=== PATIENT | male | born 1975 | race Caucasian/White ===

== ENCOUNTER 2020-03-08 21:39 | Inpatient (IN) | payer MEDICAID ==
[~2020-03-08] VITALS: Ht 170.2 cm; Wt 70.8 kg
--- NOTE | 2020-03-08 22:10 | NUR ---
Dr. Bernabe at bedside for MSE.
[2020-03-08] MEDS ORDERED: IV NS 1000 ML 1,000 ML IV ONE ×2 (22:15→23:15)
--- NOTE | 2020-03-08 22:30 | NUR ---
Pt provided urine sample, sent to lab.
[2020-03-08 22:36] LABS: BASOPHILS # (AUTO) 0.1 K/uL (0.0-8.0); BASOPHILS % (AUTO) 0.7 % (0.0-2.0); EOSINOPHILS % (AUTO) 0.4 % (0.0-7.0); HEMOGLOBIN 16.3 g/dL (12.5-16.3); LYMPHOCYTES % (AUTO) 24.4 % (20.5-51.5); MEAN CORPUSCULAR HEMOGLOBIN 28.2 uug (23.8-33.4); MEAN CORPUSCULAR HGB CONC 34 g/dL (32.5-36.3); MEAN CORPUSCULAR VOLUME 82.7 fL (73.0-96.2); MONOCYTES # (AUTO) 0.6 K/uL (2.0-10.0); NEUTROPHILS # (AUTO) 5.5 K/uL (1.8-8.9); NEUTROPHILS % (AUTO) 67.5 % (38.5-71.5); PLATELET COUNT (AUTO) 206 K/uL (152-348); WHITE BLOOD COUNT (AUTO) 8.1 K/uL (3.6-10.2)
[2020-03-08 22:41] LABS: *BILIRUBIN,URIN NEGATIVE (NEGATIVE); *CLARITY,URINE CLEAR (CLEAR); *COLOR,URINE LIGHT YELLOW (YELLOW); *KETONES,URINE 2+ (NEGATIVE); *UROBILINOGEN,URINE 0.2 E.U./dl (NORMAL); LEUKOCYTE ESTERASE ,URINE NEGATIVE (NEGATIVE); NITRITE, URINE NEGATIVE (NEGATIVE); UGLUCOSE 2+ (NEGATIVE)
[2020-03-08 22:42] LABS: *BLOOD, URINE TRACE INTACT (NEGATIVE)
[2020-03-08 22:46] LABS: BILIRUBIN,DIRECT 0.1 mg/dL (0.0-0.2); BILIRUBIN,TOTAL 0.7 mg/dL (0.2-1.0); CREATININE 1.6 mg/dL (0.6-1.3); POTASSIUM 4.8 mmol/L (3.5-5.1); TOTAL PROTEIN, SERUM 7.9 g/dL (6.4-8.2)
--- NOTE | 2020-03-08 23:07 | NUR ---
Called [facility] to page Dr. Silverio.
--- NOTE | 2020-03-08 23:11 | NUR ---
Dr. Bernabe on panel call with Dr. Mayur Silverio. Patient accepted for admission to CCU, diagnosis: DKA.
--- NOTE | 2020-03-08 23:11 | NUR ---
Dr. Bernabe on panel call with Dr. Mayur Silverio.
--- NOTE | 2020-03-08 23:13 | NUR ---
Report given to [facility].
[2020-03-08] MEDS ORDERED: INSULIN REGULAR, HUMAN 100 UNITS in IV NORMAL SALINE 100 ML IV ONE ×2 (23:15)
[2020-03-08] MEDS ORDERED: INSULIN REGULAR, HUMAN 300 UNIT/3 ML VIAL ONE (23:20)
[2020-03-08 23:33] LABS: BACTERIA,URINE NONE SEEN /HPF (NONE SEEN); WBC,URINE 0-3 /HPF (0-3)
[2020-03-09] VITALS (13 sets, daily range): BP systolic 110–135; BP diastolic 70–88
[2020-03-09] MEDS ORDERED: Z GUARD REMEDY PASTE 57 GM TUBE TOP PRN (00:15)
[2020-03-09] MEDS ORDERED: HYDROCODONE/APAP 5-325MG TABLET PO PRN (00:15)
[2020-03-09] MEDS ORDERED: ONDANSETRON 4 MG/2 ML VIAL IV PRN (00:15)
[2020-03-09] MEDS ORDERED: ACETAMINOPHEN 325 MG TABLET PO PRN (00:15)
[2020-03-09] MEDS ORDERED: INSULIN REGULAR, HUMAN 100 UNIT in IV NORMAL SALINE 99 ML IV PRN ×2 (00:15)
[2020-03-09] MEDS ORDERED: MAGNESIUM HYDROXIDE 30 ML LIQUID UDC PO PRN (00:15)
--- NOTE | 2020-03-09 00:25 | NUR ---
Xray at bedside.
--- NOTE | 2020-03-09 02:00 | NUR ---
received patient from ER , ambulatory , awake , oriented , x3 able to follow command on ra , denies pain , iv 20 ga on kristie , insulin drip at 9.999
--- NOTE | 2020-03-09 02:45 | NUR ---
dr jose d rodriguez was called to clarify algorithm of the insulin drip
[2020-03-09] MEDS: IV NS 1000 ML 1,000 ML IV PRN ×4 (03:49→23:05)
[2020-03-09 04:53] LABS: BASOPHILS % (AUTO) 0.4 % (0.0-2.0); EOSINOPHILS # (AUTO) 0.2 K/uL (0.0-0.7); HEMATOCRIT 42.6 % (36.7-47.1); HEMOGLOBIN 15.1 g/dL (12.5-16.3); LYMPHOCYTES # (AUTO) 3.2 K/uL (20.0-40.0); LYMPHOCYTES % (AUTO) 36.2 % (20.5-51.5); MEAN CORPUSCULAR HEMOGLOBIN 28.5 uug (23.8-33.4); MEAN CORPUSCULAR HGB CONC 36 g/dL (32.5-36.3); MEAN CORPUSCULAR VOLUME 80.2 fL (73.0-96.2); MONOCYTES # (AUTO) 0.7 K/uL (2.0-10.0); MONOCYTES % (AUTO) 7.8 % (0.0-11.0); NEUTROPHILS # (AUTO) 4.8 K/uL (1.8-8.9); NEUTROPHILS % (AUTO) 53.6 % (38.5-71.5); PLATELET COUNT (AUTO) 198 K/uL (152-348); RED BLOOD CELL COUNT(AUTO) 5.31 MIL/uL (4.06-5.63); WHITE BLOOD COUNT (AUTO) 8.9 K/uL (3.6-10.2)
[2020-03-09 05:00] LABS: CREATININE 1.2 mg/dL (0.6-1.3); MAGNESIUM 2.2 mg/dL (1.8-2.4); PHOSPHOROUS 3.9 mg/dL (2.5-4.9); POTASSIUM 3.7 mmol/L (3.5-5.1)
--- NOTE | 2020-03-09 08:00 | NUR ---
Report received.Pt remains awake,alert.Denies pain,discomfort.Remains on Insulin gtt for DKA management.Seen,examined by Mayur Curiel NP.Will continue to monitor.
[2020-03-09] MEDS: PANTOPRAZOLE SODIUM 40 MG VIAL IV SCH (09:30)
[2020-03-09] MEDS ORDERED: DEXTROSE 50% 50 ML DISP.SYRIN IV PRN (10:45)
[2020-03-09] MEDS ORDERED: BLOOD SUGAR DIAGNOSTIC 1 EACH STRIP VI SCH (11:30)
[2020-03-09] MEDS: BLOOD SUGAR DIAGNOSTIC 1 EACH STRIP VI SCH ×3 (11:48→20:29)
[2020-03-09 11:54] LABS: POTASSIUM 3.8 mmol/L (3.5-5.1)
--- NOTE | 2020-03-09 12:00 | NUR ---
Insulin gtt was D/C.No s/s of hypoglycemia,hyperglycemia.Will continue to monitor.
[2020-03-09] MEDS: INSULIN REGULAR, HUMAN 300 UNIT/3 ML VIAL SQ PRN ×3 (12:04→20:29)
[2020-03-09] MEDS: INSULIN GLARGINE,HUM 300 UNITS/3 ML CARTRIDGE SQ SCH ×2 (12:29→20:27)
--- NOTE | 2020-03-09 14:31 | NUR ---
Pt was transferred to room 304 via wheelchair.Report given to TONY Degroot.
--- NOTE | 2020-03-09 18:31 | NUR ---
pt plasma/ser osmolarity is 346 md made aware new orders received noted and carried out.
[2020-03-09] MEDS ORDERED: INSULIN LISPRO 300 UNIT/3 ML VIAL SQ SCH (18:45)
[2020-03-09] MEDS ORDERED: INSULIN LISPRO 300 UNIT/3 ML VIAL SQ ONE (19:00)
[2020-03-09] MEDS: ATORVASTATIN 10 MG TABLET PO SCH (20:29)
[2020-03-09] MEDS ORDERED: INSULIN GLARGINE,HUM 300 UNITS/3 ML CARTRIDGE SQ SCH (21:00)
[2020-03-10 05:32] VITALS: BP 126/83
[2020-03-10 05:59] LABS: BASOPHILS % (AUTO) 0.3 % (0.0-2.0); EOSINOPHILS # (AUTO) 0.2 K/uL (0.0-0.7); EOSINOPHILS % (AUTO) 3.7 % (0.0-7.0); HEMATOCRIT 41.7 % (36.7-47.1); HEMOGLOBIN 14.1 g/dL (12.5-16.3); LYMPHOCYTES # (AUTO) 2.4 K/uL (20.0-40.0); LYMPHOCYTES % (AUTO) 37.3 % (20.5-51.5); MEAN CORPUSCULAR HEMOGLOBIN 27.9 uug (23.8-33.4); MEAN CORPUSCULAR HGB CONC 34 g/dL (32.5-36.3); MEAN CORPUSCULAR VOLUME 82.5 fL (73.0-96.2); MONOCYTES # (AUTO) 0.3 K/uL (2.0-10.0); MONOCYTES % (AUTO) 5.3 % (0.0-11.0); NEUTROPHILS # (AUTO) 3.4 K/uL (1.8-8.9); NEUTROPHILS % (AUTO) 53.4 % (38.5-71.5); PLATELET COUNT (AUTO) 152 K/uL (152-348); RED BLOOD CELL COUNT(AUTO) 5.06 MIL/uL (4.06-5.63); WHITE BLOOD COUNT (AUTO) 6.3 K/uL (3.6-10.2)
[2020-03-10 06:02] LABS: CREATININE 0.9 mg/dL (0.6-1.3); MAGNESIUM 1.9 mg/dL (1.8-2.4); PHOSPHOROUS 3.9 mg/dL (2.5-4.9); POTASSIUM 3.9 mmol/L (3.5-5.1)
[2020-03-10] MEDS: BLOOD SUGAR DIAGNOSTIC 1 EACH STRIP VI SCH ×6 (06:30→20:27)
--- NOTE | 2020-03-10 06:30 | NUR ---
Pt rested well in between care; no acute distress; ongoing IVF; continue to monitor; continue plan of care.
[2020-03-10] MEDS: IV NS 1000 ML 1,000 ML IV PRN ×3 (06:33→23:00)
[2020-03-10] MEDS: INSULIN LISPRO 300 UNIT/3 ML VIAL SQ SCH ×2 (08:13→18:22)
[2020-03-10] MEDS: PANTOPRAZOLE SODIUM 40 MG VIAL IV SCH (08:15)
--- NOTE | 2020-03-10 08:15 | NUR ---
awake alert and oriented, ambulatory, denies of pain, no shortness of breath, took breakfast and ate 100%, seen by [employer] Baldo with orders, lispro 10 units given sq after breakfast at 0813 and also covered with 6 units RI sq for BS 262, education given for s/s of hypoglycemia since pt is receiving insulin, verbalized understanding, safety measures maintained, call light within reach
[2020-03-10] MEDS: INSULIN REGULAR, HUMAN 300 UNIT/3 ML VIAL SQ PRN ×3 (08:18→16:40)
[2020-03-10 12:00] VITALS: BP 130/87
[2020-03-10 16:31] VITALS: BP 114/73
--- NOTE | 2020-03-10 16:38 | NUR ---
accucheck done BS 190-3 units of RI sq given, states feels better.
--- NOTE | 2020-03-10 18:45 | NUR ---
resting, denies of pain, no s/s of hypoglycemic symptoms noted noted, all needs attended and met, call light within reach
[2020-03-10 20:14] VITALS: BP 128/74
[2020-03-10] MEDS: ATORVASTATIN 10 MG TABLET PO SCH (20:26)
[2020-03-10] MEDS ORDERED: INSULIN GLARGINE,HUM 300 UNITS/3 ML CARTRIDGE SQ SCH ×2 (21:00)
[2020-03-11 04:52] VITALS: BP 123/87
[2020-03-11 06:22] LABS: BASOPHILS % (AUTO) 0.3 % (0.0-2.0); EOSINOPHILS # (AUTO) 0.1 K/uL (0.0-0.7); EOSINOPHILS % (AUTO) 2.9 % (0.0-7.0); HEMATOCRIT 38.8 % (36.7-47.1); HEMOGLOBIN 13.1 g/dL (12.5-16.3); LYMPHOCYTES # (AUTO) 1.7 K/uL (20.0-40.0); LYMPHOCYTES % (AUTO) 38.7 % (20.5-51.5); MEAN CORPUSCULAR HEMOGLOBIN 27.8 uug (23.8-33.4); MEAN CORPUSCULAR HGB CONC 34 g/dL (32.5-36.3); MEAN CORPUSCULAR VOLUME 82.1 fL (73.0-96.2); MONOCYTES # (AUTO) 0.2 K/uL (2.0-10.0); MONOCYTES % (AUTO) 5.5 % (0.0-11.0); NEUTROPHILS # (AUTO) 2.3 K/uL (1.8-8.9); NEUTROPHILS % (AUTO) 52.6 % (38.5-71.5); PLATELET COUNT (AUTO) 122 K/uL (152-348); RED BLOOD CELL COUNT(AUTO) 4.72 MIL/uL (4.06-5.63); WHITE BLOOD COUNT (AUTO) 4.4 K/uL (3.6-10.2)
[2020-03-11] MEDS: BLOOD SUGAR DIAGNOSTIC 1 EACH STRIP VI SCH ×2 (06:31→11:11)
[2020-03-11] MEDS: IV NS 1000 ML 1,000 ML IV PRN (06:41)
[2020-03-11 06:52] LABS: CREATININE 0.9 mg/dL (0.6-1.3); MAGNESIUM 1.9 mg/dL (1.8-2.4); PHOSPHOROUS 3.8 mg/dL (2.5-4.9); POTASSIUM 3.6 mmol/L (3.5-5.1)
[2020-03-11] MEDS: INSULIN REGULAR, HUMAN 300 UNIT/3 ML VIAL SQ PRN ×2 (07:12→11:17)
[2020-03-11] MEDS ORDERED: METFORMIN HCL 500 MG TABLET PO SCH (08:00)
[2020-03-11] MEDS: PANTOPRAZOLE SODIUM 40 MG VIAL IV SCH (08:13)
[2020-03-11] MEDS: INSULIN LISPRO 300 UNIT/3 ML VIAL SQ SCH (08:16)
[2020-03-11] MEDS ORDERED: INSU3INS6 SQ (08:32)
[2020-03-11] MEDS ORDERED: METF-442 PO (08:32)
[2020-03-11] MEDS ORDERED: ATOR10TA PO (08:32)
[2020-03-11 12:00] VITALS: BP 137/97
--- NOTE | 2020-03-11 16:09 | NUR ---
dc orders received noted and carried out.dc instruction and education given to the pt.dc heplock per md orders pt left the facility via private car in stable condition
[2020-03-12] MEDS ORDERED: PANTOPRAZOLE SODIUM 40 MG TABLET.DR PO SCH (09:00)
== END 2020-03-11 16:10 | disposition home or self-care (01) | DRG 420 ==
LOC: ER 21:42 → CCU 03-09 01:19 → MEDSURG3 03-09 14:15
PROVIDERS: ADMIT Nurse Practitioner Acute Care; ATTEND Nurse Practitioner Acute Care
DX: E11.10 Type 2 diabetes mellitus with ketoacidosis without coma (principal); N17.0 Acute kidney failure with tubular necrosis; E78.5 Hyperlipidemia, unspecified; E86.1 Hypovolemia; E87.1 Hypo-osmolality and hyponatremia; E87.8 Other disorders of electrolyte and fluid balance, not elsewhere classified; Z87.891 Personal history of nicotine dependence; E86.9 Volume depletion, unspecified; Z83.3 Family history of diabetes mellitus
CPT/HCPCS: 36415; 71045; 83735; 84100; 84300; 85025; 93005; C9113; G0378; J1815; J3490; J7030